=== PATIENT | male | born 1990 | race Caucasian/White ===

== ENCOUNTER 2021-11-22 12:31 | Outpatient (CLI) | payer BC, SELFPAY ==
--- NOTE | 2021-11-22 | XR_ITS ---
WS: [id number] FOOT RIGHT TECHNIQUE: 3 views of the right foot CLINICAL INFORMATION: RIGHT FOOT PAIN COMPARISON: None. FINDINGS: No evidence of acute fracture or dislocation. Normal tarsal metatarsal alignment. Normal calcaneus. N ormal visualized talar dome. No acute findings. XR/XR foot RT min 3V* [id number] IMPRESSION: No acute fractures
== END 2021-11-22 12:32 | disposition home or self-care (01) ==
PROVIDERS: PCP Family Medicine; Visit Provider Nurse Practitioner Family
DX: M79.671 Pain in right foot (principal)
CPT/HCPCS: 73630

== ENCOUNTER 2023-01-14 09:13 | Emergency (ER) | payer BC, SELFPAY ==
[2023-01-14 09:35] VITALS: BP 130/86; PULSE 105; RESP 17; TEMP 37.3; O2SAT 96
[2023-01-14 09:48] LABS: Basophils % 0.2 %; Hematocrit 47.5 % (42.0-52.0); Hemoglobin 15.8 g/dL (11.7-16.6); Lymphocytes # 0.7 10^3/uL (0.8-4.8); Lymphocytes % 4.1 %; Mean Corpuscular HGB Conc 33.3 g/dL (30.0-36.0); Mean Corpuscular Hemoglobin 28.9 pg (28.0-34.0); Mean Corpuscular Volume 86.8 fl (80-94); Mean Platelet Volume 9.5 fL (7.4-10.4); Monocytes % 5.6 %; Neutrophils # 15.44 10^3/uL (1.8-7.7); Neutrophils % 89.6 %; Nucleated Red Blood Cells % 0 %; Platelet Count 274 10^3/cmm (130-400); Red Blood Count 5.47 10^6/uL (4.1-5.3); Red Cell Distribution Width 12.1 % (12.1-15.1); White Blood Count 17.2 10^3/uL (4.0-10.0)
[2023-01-14 10:09] LABS: Alanine Aminotransferase 36 U/L (0-41); Albumin Level 4.1 g/dL (3.5-5.2); Alkaline Phosphatase 71 U/L (40-130); Anion Gap 15.9 (5-19); Aspartate Amino Transferase 26 U/L (0-40); Blood Urea Nitrogen 9 mg/dL (6-20); Calcium 8.8 mg/dL (8.5-10.5); Carbon Dioxide 22 mmol/L (22-29); Chloride 100 mmol/L (98-107); Globulin 3.2 g/dL (1.3-4.6); Glomerular Filtration Rate 70.2 mL/min (90-130); Glucose 148 mg/dL (65-115); Lipase 11 U/L (13-60); Osmolality Calculated 279 mOsm/kg (285-295); Potassium 3.9 mmol/L (3.5-5.1); Sodium 134 mmol/L (136-145); Total Bilirubin 0.9 mg/dL (0.15-1.2); Total Protein 7.3 g/dL (6.6-8.7)
--- NOTE | 2023-01-14 11:01 | CT_ITS ---
WS: [id number] CT ABDOMEN PELVIS TECHNIQUE: Contrast-enhanced CT of the abdomen and pelvis with coronal and sagittal reformatted image s. CLINICAL INFORMATION: ab pain, N/V/D COMPARISON: None. DLP: 595.[address] scans at [facility] use at least one of these dose optimization techniques: automated e xposure control; mA and/or kV adjustment per patient size (includes targeted exams where dose is matc hed to clinical indication); or iterative reconstruction. FINDINGS: Mild diffuse fatty infiltration liver. Normal portal vein and splenic vein. Normal spleen. Normal GE junction. Air-fluid level in the stomach. No evidence of high-grade small or large bowel obstruction. Normal pancreatic parenchymal enhancement. Adrenal glands are normal. Normal renal parenchymal enhan cement. No hydronephrosis. A few sigmoid diverticuli. Mild diffuse thickening and enhancement involving the cecum and ascending colon extending into the proximal transverse colon suspicious for infectious or inflammatory colitis. Recommend correlation for pseudomembranous colitis. LEFT descending colon has a more normal appearan ce. Lung bases are well aerated. Celiac and SMA are patent. Normal caliber abdominal aorta. Tiny fat-cont aining umbilical hernia. Normal appendix in the RIGHT lower quadrant extending into the pelvis. Prost ate calcification. Disc osteophyte complex L4-L5 with moderate central canal stenosis. This can be fo llowed up with MRI CT/CT abdomen pelvis w con* [id number] IMPRESSION: 1. Evidence of RIGHT ascending colon and proximal transverse colon Colitis lik viki infectious or inflammatory described above. Also consider pseudomembranous colitis. 2. No hydronephrosis in either kidney. 3. Moderate central canal stenosis L4-L5 due to disc osteophyte complex with i mpingement on traversing L5 nerve roots bilaterally. Recommend follow-up with [facility]. 4. No other acute findings. Notified CHACE Leal at 01/14/2023 12:03 PM.
--- NOTE | 2023-01-14 11:02 | W.ED.NAVMDI ---
HPI - Nausea/Vomiting/Diarrhea General: Chief complaint: Nausea/Vomiting/Diarrhea Stated complaint: abd pain, fever, N/V/D Time Seen by Provider: 01/14/23 10:54 Source: patient Mode of arrival: ambulatory Limitations: no limitations History of Present Illness: Patient is a 32-year-old male with no known medical conditions here for complaints of fevers of up to 102, nausea, vomiting, diarrhea starting yesterday. He is complaining of diffuse body aches and diffuse abdominal pains that he describes as razor blades in my abdomen . Patient denies sick contacts but states he does work routinely with the public. No known poor food exposures. He states he has not noticed any blood in his emesis or stool. Denies any previous similar like illnesses. He denies cough/URI symptoms. Denies urinary symptoms or flank pain. No previous abdominal surgeries. MD elicited complaint: nausea, vomiting, diarrhea, abdominal pain and other (dizzy) Onset (ago): day(s) (yesterday) Description of diarrhea: watery Associated nausea: Yes Associated abdominal pain: Yes Location of pain: Diffuse Pain consistency: constant Severity: moderate Quality: sharp Exacerbating factors: none Relieving factors: none Associated symtoms: Reports dizziness and nausea; Denies chest pain, dysuria, headache(s) or palpitations Review of Systems Const: Reports: fever(s), chills and body aches ENMT: Denies: throat pain, odynophagia, ear or mastoid pain, nasal discharge, nasal congestion or sinus pain Card: Denies: chest pain, palpitations, edema or swelling of feet/ankles Resp: Denies: dyspnea, productive cough, non-productive cough, hemoptysis or chest congestion GI: Reports: abdominal pain, nausea, vomiting, diarrhea and GI cramping; Denies: hematemesis, hematochezia or melena : Denies: flank pain, difficulty urinating, dysuria, urinary frequency, urinary urgency or urinary hesitancy Musc: Denies: neck pain, back pain, extremity pain or joint pain Skin/Breast: Denies: rash Neuro: Reports: dizziness; Denies: headache(s), numbness in extremities, weakness in extremities or sensory changes PFSH ED PFSH: Social History Smoking and tobacco status: never smoked Physical Exam Const: COMMON NORMALS: average body habitus, patient oriented x3, no limitations, healthy appearing, alert and well nourished GENERAL APPEARANCE: cooperative and ill appearing HENMT: THROAT: posterior oropharynx normal Eye: COMMON NORMALS: no scleral icterus Neck/C-Spine: COMMON NORMALS: full ROM, no lymphadenopathy and no meningeal signs Resp: COMMON NORMALS: normal respiratory effort and clear to auscultation bilaterally AUSCULTATION: clear to auscultation bilaterally Cardio: COMMON NORMALS: regular rhythm RATE: tachycardic (mild-105) RHYTHM: regular rhythm GI: COMMON NORMALS: Normal to inspection, nondistended, normoactive bowel sounds present, Soft to palpation, No hepatosplenomegaly present and no masses INSPECTION: Yes normal to inspection AUSCULTATION: Yes normoactive bowel sounds PALPATION: Yes Soft to palpation, Yes Tenderness to palpation present (GI) (diffuse), No Guarding due to palpation present (GI), No Rigid due to palpation and Yes No hepatosplenomegaly present : COMMON NORMALS: Yes no CVA tenderness BLADDER/KIDNEY EXAM: Yes no CVA tenderness Back/Pelvis: COMMON NORMALS: no CVA tenderness Extremity: COMMON NORMALS: normal to inspection GENERAL: Yes normal exam except as noted Neuro: [place] COMA SCALE: document GCS findings Al[place]son coma scale eye opening: Spontaneous [place] coma scale verbal response: Orientated Al[place] coma scale motor response: Obey commands Al[place]son coma scale total score: 15 COMMON NORMALS: patient oriented x3, moves all extremities, no focal motor deficits and no sensory deficits noted SENSORIUM/ORIENTATION: Yes alert MENINGEAL SIGNS: Yes no meningeal signs Skin: COMMON NORMALS: no rashes or lesions noted GENERAL SKIN EXAM: no rashes or lesions noted Course Vital Signs: Vital signs: Vital Signs Temperature 99.2 F 01/14/23 09:35 Pulse Rate 105 H 01/14/23 09:35 Respiratory Rate 17 01/14/23 09:35 Blood Pressure 130/86 01/14/23 09:35 Pulse Oximetry 96 01/14/23 09:35 Oxygen Delivery Me thod Room Air 01/14/23 09:35 MDM - Nausea/Vomiting/Diarrhea Medical Decision Making Patient is a healthy 32-year-old male here for concerns of nausea, vomiting, diarrhea, diffuse abdominal pains, and fevers starting yesterday. He arrives appearing generally ill. He is mildly tachycardic at 105. Low-grade temp of 99.2. Tachycardia improved with IV fluids. Blood work showing a white count of 17.2. He has a normal lactate. Remainder of labs are overall unremarkable. Influenza/COVID-negative. CT scan showing colitis to right ascending and proximal transverse colon. Radiologist commented on consideration for pseudomembranous colitis. Patient has not had any recent antibiotic use. He has no risk factors for C. difficile infection. He has been here in our emergency department approximately 4.5 hours and has not had any episodes of diarrhea. I think C. difficile pseudomembranous colitis would be very unlikely. Patient was given IV Cipro/Flagyl and will be sent home with these medications as well as pain/nausea medications. He was offered hospital admission secondary to fevers, tachycardia, and leukocytosis but he declines and would like to attempt to treat at home which I think is reasonable. Strict return ED precautions given. Lab Data 01/14/23 09:27 01/14/23 09:27 Radiology Impressions Abdomen/Pelvis CT 01/14/23 11:01 IMPRESSION: 1. Evidence of RIGHT ascending colon and proximal transverse colon Colitis likely infectious or inflammatory described above. Also consider pseudomembranous colitis. 2. No hydronephrosis in either kidney. 3. Moderate central canal stenosis L4-L5 due to disc osteophyte complex with impingement on traversing L5 nerve roots bilaterally. Recommend follow-up with MRI. 4. No other acute findings. Notified CHACE Leal at 01/14/2023 12:03 PM. Laboratory Results WBC 17.2 10^3/uL (4.0-10.0) H 01/14/23 09: RBC 5.47 10^6/uL (4.1-5.3) H 01/14/23 09: Hgb 15.8 g/dL (11.7-16.6) 01/14/23 09: Hct 47.5 % (42.0-52.0) 01/14/23 09: MCV 86.8 fl (80-94) 01/14/23 09: MCH 28.9 pg (28.0-34.0) 01/14/23 09: MCHC 33.3 g/dL (30.0-36.0) 01/14/23 09: RDW 12.1 % (12.1-15.1) 01/14/23 09: Plt Count 274 10^3/cmm (130-400) 01/14/23 09: MPV 9.5 fL (7.4-10.4) 01/14/23 09: Neut % (Auto) 89.6 % 01/14/23 09: Lymph % (Auto) 4.1 % 01/14/23 09: [place] % (Auto) 5.6 % 01/14/23 09: Eos % (Auto) 0.0 % 01/14/23 09: Baso % (Auto) 0.2 % 01/14/23 09: Neut # (Auto) 15.44 10^3/uL (1.8-7.7) H 01/14/23 09: Lymph # (Auto) 0.7 10^3/uL (0.8-4.8) L 01/14/23 09: [place] # (Auto) 1.0 10^3/uL (0.2-0.9) H 01/14/23 09:27 Eos # (Auto) 0.0 10^3/uL (0.0-0.8) 01/14/23 09: Baso # (Auto) 0.0 10^3/uL (0.0-0.1) 01/14/23 09: Nucleated RBC % (auto) 0 % 01/14/23 09: Nucleated RBCs # 0.0 /100WBC 01/14/23 09: Sodium 134 mmol/L (136-145) L 01/14/23 09:27 Potassium 3.9 mmol/L (3.5-5.1) 01/14/23 09: Chloride 100 mmol/L (98-107) 01/14/23 09: Carbon Dioxide 22 mmol/L (22-29) 01/14/23 09:27 Anion Gap 15.9 (5-19) 01/14/23 09: BUN 9 mg/dL (6-20) 01/14/23 09: Creatinine 1.2 mg/dL (0.7-1.2) 01/14/23 09:27 GFR Calculation 70.2 mL/min (90-130) L 01/14/23 09: Glucose 148 mg/dL (65-115) H 01/14/23 09:27 Calculated Osmolality 279 mOsm/kg (285-295) L 01/14/23 09:27 Lactic Acid 1.6 mmol/L (0.5-2.2) 01/14/23 09:27 Calcium 8.8 mg/dL (8.5-10.5) 01/14/23 09:27 Total Bilirubin 0.9 mg/dL (0.15-1.2) 01/14/23 09: AST 26 U/L (0-40) 01/14/23 09: ALT 36 U/L (0-41) 01/14/23 09: Alkaline Phosphatase 71 U/L (40-130) 01/14/23 09:27 Total Protein 7.3 g/dL (6.6-8.7) 01/14/23 09: Albumin 4.1 g/dL (3.5-5.2) 01/14/23 09: Globulin 3.2 g/dL (1.3-4.6) 01/14/23 09: Lipase 11 U/L (13-60) L 01/14/23 09:27 Influenza Type A Ag negative (Negative) 01/14/23 11:22 Influenza Type B Ag negative (Negative) 01/14/23 11:22 SARS-CoV-2 Ag (Rapid) negative (Negative) 01/14/23 11:22 Discharge Plan Discharge Patient Disposition: Home Clinical Impression: Colitis Condition: Stable Prescriptions: New metronidazole 500 mg tablet 500 mg PO BID 7 Days Qty: 14 0RF Cipro 500 mg tablet 500 mg PO Q12H Qty: 14 0RF hydrocodone-acetaminophen 5-325 mg tablet 1 tab PO Q6H PRN (Reason: pain) Qty: 14 0RF ondansetron 4 mg tablet,disintegrating 4 mg PO Q8H PRN (Reason: nausea and vomiting) Qty: 14 0RF No Action acetaminophen 325 mg Tablet 650 mg PO QID PRN (Reason: Pain) amlodipine 5 mg tablet 5 mg PO DAILY omeprazole 20 mg Capsule,Delayed Release(Dr/Ec) 20 mg PO DAILY Discharge Orders: Discharge ED (Routine); Ordered 01/14/23 Ordered By: Shoshana Newby Referrals: Piero Roth MD [Primary Care Provider] - Patient Instructions: Colitis (ED), Opioid Safety, Pain Management Activity Restrictions/Additional Instructions: You may begin taking your oral antibiotics this evening. You can continue taking Tylenol and/or Ibuprofen as needed for fevers/pain. I have given you a prescription for Hydrocodone you may take for severe pain. Do not take this along with Tylenol as it already has this ingredient in it. I would recommend a bland liquid diet over the next 48 hours and slowly advance as tolerated. If fevers, abdominal pain, generally feeling ill worsen over the next 24 to 48 hours you need to return to the emergency department for re-evaluation and likely admission. This follow-up with your primary care provider soon as possible. As we discussed you are unable to give stool samples on today's visit. Coding Level of Care Code ED Telephone Order Dispatcher for Joselo Coy
[2023-01-14] MEDS: sodium chloride 0.9% 1,000 ML 999 ML IV (11:31)
[2023-01-14] MEDS: ondansetron 2 mg/ML SDV 2 mL 4 MG IVP (11:31)
[2023-01-14 11:39] LABS: Lactic Sepsis W/Reflex 1.6 mmol/L (0.5-2.2)
[2023-01-14 11:49] LABS: Influenza A by IFA negative (Negative); Influenza B by IFA negative (Negative)
[2023-01-14 11:50] LABS: SARS Covid-2 Antigen negative (Negative)
[2023-01-14] MEDS: ciprofloxacin 400 MG/200 ML PREMIX 200 MG IV (12:51)
[2023-01-14] MEDS: metroNIDAZOLE IV 500 MG/100 ML PREMIX 100 MG IV (12:51)
== END 2023-01-14 14:09 | disposition home or self-care (01) ==
PROVIDERS: Emergency Provider Physician Assistant; PCP Family Medicine
DX: K52.9 Noninfective gastroenteritis and colitis, unspecified (principal); Z20.822 Contact with and (suspected) exposure to COVID-19
CPT/HCPCS: 74177; 80053; 83605; 83690; 85025; 87426; 87804; 99285; J0744; J2405; J3490; J7030; Q9967

== ENCOUNTER 2024-06-11 08:17 | Emergency (ER) | payer BC, SELFPAY ==
[2024-06-11 08:23] VITALS: BP 154/93; PULSE 104; RESP 18; TEMP 36.8; O2SAT 98; BMI 25.7
--- NOTE | 2024-06-11 08:32 | W.ED.WOUNDLC ---
HPI - Wound/Laceration General: Chief Complaint: Wound/Laceration Stated Complaint: Injury to middle finger on lft hand Time Seen by Provider: 06/11/24 08:25 Source: patient Mode of arrival: ambulatory Limitations: no limitations History of Present Illness: 34-year-old male states that he was cutting ham last night and lacerated the tip of his left middle finger does have a small laceration to the finger states he has not been able to get the bleeding to really stop he has a Band-Aid on it he is unsure when his last tetanus was. Denies any other injuries Associated symptoms: Denies chills, fever(s), nausea or vomiting Related Data Home Medications Medication Instructions Recorded Confirmed acetaminophen 325 mg tablet 650 mg PO QID PRN Pain 01/14/23 01/14/23 amlodipine 5 mg tablet 5 mg PO DAILY 01/14/23 01/14/23 omeprazole 20 mg capsule,delayed 20 mg PO DAILY 01/14/23 01/14/23 release Previous Rx's Medication Instructions Recorded ciprofloxacin HCl 500 mg tablet 500 mg PO Q12H #14 tabs 01/14/23 (Cipro) hydrocodone 5 mg-acetaminophen 325 1 tab PO Q6H PRN pain #14 tabs 01/14/23 mg tablet ondansetron 4 mg disintegrating 4 mg PO Q8H PRN nausea and 01/14/23 tablet vomiting #14 tabs cephalexin 500 mg capsule 500 mg PO TID 7 days #21 caps 06/11/24 Allergies Allergy/AdvReac Type Severity Reaction Status Date / Time No Known Allergies Allergy Unverified 01/14/23 09:39 Review of Systems Const: Denies: fever(s), chills, body aches or change in appetite ENMT: Denies: throat pain or dental pain Card: Denies: chest pain Resp: Denies: dyspnea GI: Denies: abdominal pain, nausea, vomiting or diarrhea Musc: Reports: extremity pain; Denies: neck pain or back pain Skin/Breast: Denies: rash Neuro: Denies: headache(s) PFSH ED PFSH: Social History Smoking and tobacco/nicotine status: never used tobacco/nicotine Physical Exam Const: COMMON NORMALS: no acute distress HENMT: COMMON NORMALS: normocephalic and atraumatic HEAD & SCALP: normocephalic and atraumatic Chest: COMMONS NORMALS: normal inspection of the chest Resp: COMMON NORMALS: normal respiratory effort Extremity: NARRATIVE EXTREMITY EXAM: 2 cm laceration to the distal tip of left middle finger no tendon involvement bleeding controlled Course Vital Signs: Vital signs: Vital Signs Temperature 98.2 F 06/11/24 08:23 Pulse Rate 104 H 06/11/24 08:23 Respiratory Rate 18 06/11/24 08:23 Blood Pressure 154/93 06/11/24 08:23 Pulse Oximetry 98 06/11/24 08:23 Oxygen Delivery Me thod Room Air 06/11/24 08:23 MDM - Wound/Laceration Medical Decision Making Patient presents here with finger laceration did repair the laceration we will place him on antibiotics he is to have sutures removed in 1 week no tendon involvement he stable for discharge. Medical Records I reviewed the patient's medical records. Lab Data I reviewed the patient's lab results. No radiology studies performed this visit Discharge Plan Discharge Patient Disposition: Home Clinical Impression: Laceration of finger of left hand Qualifiers: Encounter type: initial encounter Finger: middle finger Damage to nail status: without damage Condition: Stable Prescriptions: New cephalexin 500 mg capsule 500 mg PO TID 7 Days Qty: 21 0RF No Action acetaminophen 325 mg Tablet 650 mg PO QID PRN (Reason: Pain) amlodipine 5 mg tablet 5 mg PO DAILY omeprazole 20 mg Capsule,Delayed Release(Dr/Ec) 20 mg PO DAILY Cipro 500 mg tablet 500 mg PO Q12H Qty: 14 0RF hydrocodone-acetaminophen 5-325 mg tablet 1 tab PO Q6H PRN (Reason: pain) Qty: 14 0RF ondansetron 4 mg tablet,disintegrating 4 mg PO Q8H PRN (Reason: nausea and vomiting) Qty: 14 0RF Discharge Orders: Discharge ED (Routine); Ordered 06/11/24 Ordered By: Harpreet Dixon Referrals: Piero Roth MD [Primary Care Provider] - Discharge Diet: Advance as tolerated Discharge Activity: Resume usual activity Patient Instructions: Laceration (ED) Activity Restrictions/Additional Instructions: suture removal in 7 days Coding Level of Care Code ED Public School Teacher for Joselo Coy
[2024-06-11] MEDS: tetanus-dipt-pertussis 0.5 mL SDV IM (08:36)
[2024-06-11] MEDS: ondansetron 4 MG Tablet PO (08:42)
[2024-06-11 08:49] VITALS: PULSE 96; O2SAT 100
== END 2024-06-11 08:50 | disposition home or self-care (01) ==
PROVIDERS: Emergency Provider Emergency Medicine; PCP Family Medicine
DX: S61.213A Laceration without foreign body of left middle finger without damage to nail, initial encounter (principal); W26.0XXA Contact with knife, initial encounter
CPT/HCPCS: 90471; 90715; 99283; Q0162